=== PATIENT | female | born 1950 | race Caucasian/White ===

== ENCOUNTER 2016-05-12 10:00 | Emergency (ER) | payer OTHER ==
[~2016-05-12] VITALS: Ht 162.6 cm; Wt 63.5 kg
[~2016-05-12 10:00] MED LIST: ADULT LOW DOSE81 MG PO; ASPIRIN325 PO; BYSTOLIC 5 MG5 M1 PO; CRESTOR10 MG PO; CRESTOR5 MG OR; FISH OIL 1,0001 EAC5 PO; FISHOIL; FLAX OIL1000 MG PO; LISINOPRIL2.5 MG OR; MILK THISTLE500 MG PO; NAPROSYN500 MG PO; NIASPAN 500 MG500 M1; NORCO 5-325 TA1 EACH PO; NORFLEX100 MG PO; PLAVIX 75 MG TA75 MG OR; PRILOSEC 20 MG20 MG PO; PRILOSEC PO; TOPROL XL25 MG PO; ULTRAM 50MG TAB50 MG PO
[2016-05-12 10:01] VITALS: BP 158/85
[2016-05-12] MEDS ORDERED: NORCO 5-325 TA1 EACH PO (10:50)
== END 2016-05-12 11:00 | disposition home or self-care (01) ==
LOC: ER 10:00
DX: S20.211A Contusion of right front wall of thorax, initial encounter (principal); K21.9 Gastro-esophageal reflux disease without esophagitis; I10 Essential (primary) hypertension; F17.210 Nicotine dependence, cigarettes, uncomplicated; Z90.710 Acquired absence of both cervix and uterus; Z88.0 Allergy status to penicillin; X58.XXXA Exposure to other specified factors, initial encounter; Y93.89 Activity, other specified; Y92.89 Other specified places as the place of occurrence of the external cause; Y99.8 Other external cause status

== ENCOUNTER → 2019-06-23 | Outpatient (CLI) | payer OTHER ==
[~2019-06-23] MED LIST changes: +FLEXERIL PO; +HYDROCODONE-AP1 EAC6 PO
== END ==
LOC: MRI 12:04
DX: M17.11 Unilateral primary osteoarthritis, right knee (principal); M22.41 Chondromalacia patellae, right knee; M71.21 Synovial cyst of popliteal space [Baker], right knee; W19.XXXA Unspecified fall, initial encounter

== ENCOUNTER → 2019-10-22 | Outpatient (CLI) | payer OTHER | LOC: NUC 07:16 | PROVIDERS: ATTEND Internal Medicine | DX: I25.10 Atherosclerotic heart disease of native coronary artery without angina pectoris (principal); I10 Essential (primary) hypertension; E78.00 Pure hypercholesterolemia, unspecified; Z95.5 Presence of coronary angioplasty implant and graft ==

== ENCOUNTER 2020-05-27 22:49 | Inpatient (IN) | payer OTHER ==
[~2020-05-27] VITALS: Ht 165.1 cm; Wt 57.2 kg
[2020-05-27 22:50] VITALS: BP 81/46
[2020-05-27 23:25] LABS: ABSOLUTE NEUTROPHILS 8.2 thou/uL (1.4-8.2); BASOPHILS 0.2 % (0.0-2.0); EOSINOPHILS 2.4 % (0.0-3.0); HEMATOCRIT 48.4 % (37.0-47.0); HEMOGLOBIN 15.8 gm/dL (12.0-15.0); LYMPHOCYTES 36.5 % (24.0-44.0); MCH 29.6 pg (26.0-34.0); MCHC 32.6 g/dL (28.0-37.0); MCV 90.6 fL (80.0-100.0); MONOCYTES 5.1 % (1.0-8.0); PLATELET COUNT 246 thou/uL (150-400); POLYS 55.8 % (36.0-66.0); RBC 5.34 mil/uL (4.20-5.00); RDW 13.2 % (10.5-14.5); WBC 14.7 thou/uL (4.0-11.0)
[2020-05-27 23:31] LABS: ANION GAP 10 mmol/L (7-16); BUN 14 mg/dL (7-18); CALCIUM 8.5 mg/dL (8.5-10.1); CHLORIDE 106 mmol/L (98-107); CO2 26 mmol/L (21-32); GLUCOSE 163 mg/dL (74-106); POTASSIUM 3.4 mmol/L (3.5-5.1); SODIUM 142 mmol/L (136-145)
[2020-05-27 23:42] LABS: ALBUMIN 3.3 g/dL (3.4-5.0); LIPASE 116 U/L (73-393); SGOT 17 U/L (15-37); SGPT 17 U/L (14-59); TOTAL BILIRUBIN 0.3 mg/dL (0.2-1.0); TROPONIN-I <0.06 ng/mL (<0.06)
[2020-05-28] VITALS (26 sets, daily range): BP systolic 97–140; BP diastolic 32–89
[2020-05-28 00:03] LABS: LARGE PLATELETS OCCASIONAL
[2020-05-28 01:18] LABS: HEMATOCRIT 43.9 % (37.0-47.0); HEMOGLOBIN 14.4 gm/dL (12.0-15.0); MCH 29.3 pg (26.0-34.0); MCHC 32.7 g/dL (28.0-37.0); MCV 89.6 fL (80.0-100.0); RBC 4.9 mil/uL (4.20-5.00); RDW 12.7 % (10.5-14.5); WBC 14.8 thou/uL (4.0-11.0)
[2020-05-28 01:32] LABS: INR 1.1; PROTIME 12.4 Seconds (9.3-11.4)
[2020-05-28] MEDS ORDERED: ASA81BEC PO (04:04)
[2020-05-28 04:29] LABS: HEMATOCRIT 45.9 % (37.0-47.0); MCH 29.3 pg (26.0-34.0); MCHC 32.6 g/dL (28.0-37.0); RBC 5.1 mil/uL (4.20-5.00); WBC 10.1 thou/uL (4.0-11.0)
[2020-05-28 04:42] LABS: CREATININE 1.1 mg/dL (0.6-1.0); POTASSIUM 3.9 mmol/L (3.5-5.1)
[2020-05-28 04:52] LABS: TROPONIN-I 4.37 ng/mL (<0.06)
--- NOTE | 2020-05-28 07:39 | EKG ---
[address] [facility] [place] [address] ELECTROCARDIOGRAM REPORT Name: ELEONORA GUAJARDO Room #: 212-P ADM IN M.R.#: [id number] Admission: 05/28/20 Attend Phys: Manjinder Nicole MD Discharge: Date of : 50 Report #: [id number] [facility] ED Test Date: 2020-05-27 Test Time: 22:59:58 Pat Name: ELEONORA GUAJARDO Department: Room: 212 Gender: F Senior Underwriter: salvador : 1950 Requested By: Danny Hollis Order Number: [id number] MD: Raymond Peters Measurements Intervals [place] Rate: 82 P: 80 RI: 136 QRS: 35 QRSD: 87 T: 41 QT: 406 QTc: 475 Interpretive Statements Sinus rhythm Probable left atrial enlargement Probable anteroseptal infarct, recent Compared to ECG 07/16/2010 09:54:02 Myocardial infarct finding now present Electronically Signed On 05-28-2020 7:39:05 CLERICAL MANAGER by Raymond Peters [email or web address] <ELECTRONICALLY SIGNED> By: Raymond Peters MD, [facility] 05/28/20 0739 58 Raymond Peters MD, FACC /EPI
--- NOTE | 2020-05-28 07:42 | EKG ---
[address] [place] [address] ELECTROCARDIOGRAM REPORT Name: ELEONORA GUAJARDO Room #: 212-P ADM IN M.R.#: [id number] Admission: 05/28/20 Attend Phys: Manjinder Nicole MD Discharge: Date of : 50 Report #: [id number] [facility] ED Test Date: 2020-05-27 Test Time: 23:31:56 Pat Name: ELEONORA GUAJARDO Department: Room: [facility] Gender: F It Security Specialist: charley : 1950 Requested By: Danny Hollis Order Number: [id number] MD: Raymond Peters Measurements Intervals [place] Rate: 93 P: 57 [place]: 160 QRS: 53 QRSD: 84 T: -26 QT: 383 QTc: 477 Interpretive Statements Sinus rhythm Probable anteroseptal infarct, recent Compared to ECG 05/27/2020 22:59:58 No significant changes Electronically Signed On 05-28-2020 7:42:10 SNOWBLOWER MECHANIC by Raymond Peters [email or web address] <ELECTRONICALLY SIGNED> By: Raymond Peters MD, [facility] 05/28/20 0742 30 30 Raymond Peters MD, FACC /EPI
--- NOTE | 2020-05-28 07:42 | EKG ---
[address] [place] [address] ELECTROCARDIOGRAM REPORT Name: ELEONORA GUAJARDO Room #: 212-P ADM IN M.R.#: [id number] Admission: 05/28/20 Attend Phys: Manjinder Nicole MD Discharge: Date of : 50 Report #: [id number] [facility] ED Test Date: 2020-05-28 Test Time: 01:43:04 Pat Name: ELEONORA GUAJARDO Department: Room: 212 Gender: F Stapler Coil Unit: DUANE : 1950 Requested By: Marta Diaz Order Number: [id number] : Raymond Peters Measurements Intervals [place] Rate: 88 P: 78 [place]: 146 QRS: 52 QRSD: 88 T: 40 QT: 367 QTc: 444 Interpretive Statements Sinus rhythm Probable left atrial enlargement Anterior infarct, old Compared to ECG 05/27/2020 23:31:56 No significant changes Electronically Signed On 05-28-2020 7:42:26 CARDIAC TECHNICIAN by Raymond Peters [email or web address] <ELECTRONICALLY SIGNED> By: Raymond Peters MD, [facility] 05/28/20 0742 014 0143 Raymond Peters MD, FACC /EPI
--- NOTE | 2020-05-28 08:33 | NUR ---
PATIENT WAS A NEW ADMISSION TO THE UNIT THIS SHIFT. SHE ARRIVED VIA CART FROM THE ER AND WAS ABLE TO AMBULATE TO THE BED WITHOUT INCIDENT. PATIENT IS FULLY ALERT AND ORIENTED AND ABLE TO PARTICIPATE FULLY IN HER ADMISSION. NITRO AND HEPARIN GTT'S TO GOOD AFFECT WITH PATIENT HAVING NO COMPLAINTS OF PAIN THROUGHOUT SHIFT. BREATHING STABLE ON TWO LITERS NASAL CANNULA EVIDENCED BY ADMISSION ASSESSMENT AND SPOT OXYGENATION CHECKS. NURSE TO COMPLETE ADMISSION AND INITIATE PLAN OF CARE.
--- NOTE | 2020-05-28 18:49 | NUR ---
ALERT AND ORIENTED AND VITALS STABLE. WEANED OFF NITRO GTT AND DENIES CHEST PAIN. TOLERATING DIET W/O NAUSEA. SCHEDULED FOR HEART CATH TOMORROW AND CONSENT SIGNED AND IN THE CHART.
[2020-05-29] VITALS (9 sets, daily range): BP systolic 99–126; BP diastolic 47–75
--- NOTE | 2020-05-29 04:42 | NUR ---
ASSUMED PT CARE AT 1900. VSS. PT A&0X4. DENIES PAIN. PT IS STABLE, NPO SINCE MIDNIGHT. NO ISSUES OVER NOC. WILL CONTINUE TO MONITOR PER OC
--- NOTE | 2020-05-29 11:53 | CATHLAB ---
[facility] [place] [address] INVASIVE PROCEDURE REPORT Name: ELEONORA GUAJARDO Room #: 212-P ADM IN M.R.#: [id number] Admission: 05/28/20 Attend Phys: Manjinder Nicole MD Discharge: Date of : 50 Report #: [id number] THIS REPORT FOR: cc: Manjinder Nicole MD, Neal A. MD Park, Jin S. MD ~ APPROVED REPORT Study performed: 05/29/2020 08:25:01 Patient Details Patient Status: In-Patient Room #: 212 The patient is a 69 year-old female Event Personnel Migel Ariza Front Worker, Natanael Cates RTR ScrubHerminio Ja'net RTR Monitor, Tahir Marley RTR Supervisor [employer], Felix Lowe RN mill tender second operator Performed Left Heart Cath w/or w/o Coronaries [id number] [facility] Art Access - R femoral artery* Hemostasis with Manual pressure 92145 Initial Mod Sed Same Phys/QHP Gr5y [id number] Indication Non-STEMI , Dyspnea, Chest pain, The patient presented with chest pain and positive troponin levels. Risk Factors Hypercholesterolemia, Coronary Artery DiseaseHypertension Procedure Narrative The patient was brought urgently to the Cardiac Catheterization Laboratory and was prepped and draped in a sterile manner. The Right Groin^ was infiltrated with 1% Lidocaine subcutaneous anesthesia. A PINNACLE 4FR Sheath #[id number] sheath was inserted into the RFA^. Coronary angiography was performed using coronary diagnostic catheters. The right coronary system was accessed and visualized with a JR4 catheter. The left coronary system was accessed and visualized with a JL4 catheter. The left ventricle was accessed and visualized with a PIGTAIL catheter. Left ventricular/Aortic Valve gradient assessed via catheter pullback. Left ventriculogram was performed in 30 degree projection. Hemostasis was obtained with manual pressure following sheath removal without any complications. The patient [facility] [address] [place] [address] INVASIVE PROCEDURE REPORT Name: ELEONORA GUAJARDO Room #: 212-P [facility] IN ..#: [id number] Admission: 05/28/20 Attend Phys: Manjinder Nicole, Discharge: Date of : 50 Report #: [id number] tolerated the procedure well and there were no complications associated with the procedure. There was no hematoma. Intraoperative Conscious Sedation Sedation start time: 8:48 Case end Time: 9:17 Fentanyl 50 mcg Versed 1 mg Fluoro Time: 1.30 minutes Dose: DAP 1644.30 cGycm2 227 mGy Contrast Type and Amount: Visipaque 80 ml Coronary Angiography The patient's coronary anatomy is right dominant. Diagnostic Cath Left Main The left main artery is a large-caliber vessel, patent with no flow-limiting lesions. LAD There is a previously placed stent to the mid segment, patent with minimal restenosis. There is mild to moderate disease in the distal LAD segment, 30 to 40%. Recommend medical therapy. Diagonal 1 This is a small caliber vessel, with no flow-limiting lesions. Diagonal 2 This is a small caliber vessel, with no flow-limiting lesions. Circumflex There is mild diffuse disease in the midsegment, 20%. OM1 This is a moderate-sized caliber vessel, patent with no flow-limiting lesions. OM2 This is a moderate-sized caliber vessel, patent with no flow-limiting lesions. Right Coronary The RCA is a dominant vessel with mild disease in the midsegment, 30%. R PDA This is a moderate-sized caliber vessel, patent with no flow-limiting lesions. RPLV This is a moderate-sized caliber vessel, patent with no flow-limiting lesions. Left Ventriculography The left ventricle is normal in size with normal contractility. The left ventricular ejection fraction is estimated to be 50-55%. There is subtle hypokinesis of the anterior lateral segment. Hemodynamics The aortic pressure is 116/65 mmHg with a mean of 87 mmHg. [facility] [address] [place] [address] INVASIVE PROCEDURE REPORT Name: ELEONORA GUAJARDO Room #: 212-P ADM IN M.R.#: [id number] Admission: 05/28/20 Attend Phys: Manjinder Nicole, Discharge: Date of : 50 Report #: [id number] ventricular pressure is 126/15 mmHg with a mean of mmHg. The left ventricular end diastolic pressure is 25 mmHg. Pullback from the left ventricle to the aorta revealed no gradient across the aortic valve. Conclusion 1. There is a patent stent in the mid LAD segment with minimal restenosis. 2. There is mild to moderate disease in the distal LAD, mid left circumflex and mid RCA segments. 3. Borderline lownormal LV systolic function with subtle hypokinesis of the anterolateral segment. Possible Takotsubo cardiomyopathy. 4. Recommend guideline directed medical therapy and aggressive risk factor management. <ELECTRONICALLY SIGNED> By: Migel Ariza MD 05/29/20 1153 1153 1153 Migel Ariza MD /INF
--- NOTE | 2020-05-29 13:22 | 2DMMODE ---
[facility] [place] [address] 2 D/M-MODE ECHOCARDIOGRAM Name: ELEONORA GUAJARDO PATRICK Room #: 212-P ADM IN M.R.#: [id number] Admission: 05/28/20 Attend Phys: Manjinder Nicole MD Discharge: Date of : 50 Report #: [id number] THIS REPORT FOR: cc: Manjinder Nicole MD, Neal A. MD Santiago, Patrick MD [facility] ~ APPROVED REPORT Study performed: 05/29/2020 12:31:28 EXAM: Comprehensive 2D, Doppler, and color-flow Echocardiogram Patient Location: Bedside Room #: 212 Status: routine BSA: 1.63 HR: 62 bpm BP: 126/66 mmHg Rhythm: NSR Other Information Study Quality: Good Indications Acute coronary syndrome, short of breath. Status post PCI. Hx: CAD with stenting, tobacco abuse. 2D Dimensions RVDd: 35.31 mm IVSd: 12.00 (7-11mm) LVOT Diam: 20.00 (18-24mm) LVDd: 38.00 mm PWd: 9.00 (7-11mm) Ascending Ao: 31.00 (22-36mm) LVDs: 28.00 (25-40mm) Left Atrium: 32.00 (27-40mm) Aortic Root: 30.00 mm Volumes Left Atrial Volume (Systole) Single Plane 4CH: 29.37 mL Single Plane 2CH: 31.40 mL LA ESV Index: 21.00 mL/m2 Aortic Valve AoV Peak Lucas.: 1.18 m/s AO Peak Gr.: 5.52 mmHg LVOT Max P.16 mmHg [facility] [address] [address] 2 D/M-MODE ECHOCARDIOGRAM Name: ELEONORA GUAJARDO Room #: 212-P [facility] IN ..#: [id number] Admission: 05/28/20 Attend Phys: Manjinder Nicole, Discharge: Date of : 50 Report #: [id number] LVOT Max V: 0.73 m/s MATTHIAS Vmax: 2.00 cm2 Mitral Valve E/A Ratio: 1.5 MV Decel. Time: 178.26 ms MV E Max Lucas.: 0.79 m/s MV A Lucas.: 0.53 m/s MV PHT: 51.70 ms IVRT: 79.58 ms Pulmonary Valve PV Peak Lucas.: 0.67 m/s PV Peak Gr.: 1.81 mmHg Pulmonary Vein P Vein S: 0.42 m/s P Vein A: 0.31 m/s P Vein D: 0.36 m/s P Vein A Dur.: 131.5 msec P Vein S/D Ratio: 1.17 Tricuspid Valve TR Peak Lucas.: 2.16 m/s RAP Estimate: 5.00 mmHg TR Peak Gr.: 17.00 mmHg PA Pressure: 22.00 mmHg Left Ventricle The left ventricle is normal size. Mild basal septal hypertrophy is present. Left ventricular systolic function is normal. LVEF is 50-55%. The left ventricular diastolic function is normal. Right Ventricle The right ventricle is normal size. The right ventricular systolic function is normal. Atria The left atrium size is normal. The right atrium size is normal. Aortic Valve The aortic valve is normal in structure; mildly calcified. Mild aortic regurgitation. There is no aortic valvular stenosis. Mitral Valve The mitral valve is normal in structure. Mild mitral annular calcification. Trace mitral regurgitation. No evidence of mitral valve stenosis. [facility] [address] [place] [address] 2 D/M-MODE ECHOCARDIOGRAM Name: ELEONORA GUAJARDO [facility] Room #: 212-P [facility] IN M.R.#: [id number] Admission: 05/28/20 Attend Phys: Manjinder Nicole, Discharge: Date of : 50 Report #: [id number] Tricuspid Valve The tricuspid valve is normal in structure. Trace tricuspid regurgitation. Estimated PAP is 20-25mmHg. Pulmonic Valve Pulmonic valve is not well visualized. Great Vessels The aortic root is normal in size. The ascending aorta is normal in size. IVC is normal in size and collapses >50% with inspiration. Pericardium There is no pericardial effusion. <Conclusion> Normal left ventricular size the Mild basal septal hypertrophy Ejection fraction of 50-55% with mild mid anterior apical and distal inferoapical hypokinesis possibly mild Takotsubo finding Normal atrial size Normal right ventricular size/function Color-flow Doppler study was performed of the aortic/mitral/tricuspid/pulmonary valve Mild aortic valve insufficiency Mild mitral annular calcification Trace tricuspid valve insufficiency, PA pressure estimated 25 mmHg No pericardial effusion <ELECTRONICALLY SIGNED> By: Raymond Peters MD, FACC 05/29/20 132 20 20 Raymond Peters MD, FACC /INF
--- NOTE | 2020-05-29 19:44 | NUR ---
RECEIVED PT'S CARE AROUND 0730; PT. ON BED; ALERT; DURING AM ASSESSMENT NO C/O PAIN; SR ON THE MONITOR; NPO; SCHEDULED CARDIAC CATH; AM MEDICATIONS GIVEN; GONE FOR PROCEDURE BEFORE 0900; BACK AFTER 1030; PER REPORT NO INTERVENTION; D/C HEPARING GTT; NS FLUIDS RUN; R. GROIN INCISION C/D/I; NO HEMATOMA THROUGH THE DAY; EDUCATED ABOUT CALLING IF NOTICED SWELLING OR INCREASE PAIN; ST. UNDERSTANDING; EDUCATED ABOUT HOLDING PRESSURE IF COUGHING; ST. UNDERSTANDING; OFF FROM BED REST AT 1330; PT. ABLE TO AMBULATE; NO C/O PAIN; ASSESSMENT CHARGED; FOLLOWING POC; PASSED ON REPORT;
[2020-05-30] VITALS (7 sets, daily range): BP systolic 102–160; BP diastolic 47–77
--- NOTE | 2020-05-30 04:13 | NUR ---
PT IS ALERT AND ORIENTED X4. LUNGS ARE CLEAR ON ROOM AIR. UP AD SONYA. RIGHT GROIN SITE IS DRY AND INTACT NO HEMATOMA NOTED DENIES ANY CHEST PAIN AT THIS TIME. ABDOMEN IS SOFT AND ROUND. CALL LIGHT WITHIN REACH IF NEEEDS ASSTST. ABDOMEN IS ROUND AND SOFT BOWEL SOUNDS ACTIVE X4. NO CONERNS OR NOTED WILL CONTINUE TO,
[2020-05-30 04:43] LABS: CALCIUM 8.4 mg/dL (8.5-10.1); CREATININE 0.6 mg/dL (0.6-1.0); POTASSIUM 3.5 mmol/L (3.5-5.1)
[2020-05-30 05:02] LABS: HEMATOCRIT 40.6 % (37.0-47.0); HEMOGLOBIN 13.2 gm/dL (12.0-15.0); MCH 29.4 pg (26.0-34.0); MCHC 32.4 g/dL (28.0-37.0); MCV 90.6 fL (80.0-100.0); RBC 4.48 mil/uL (4.20-5.00); RDW 13.3 % (10.5-14.5); WBC 6.8 thou/uL (4.0-11.0)
[2020-05-30] MEDS ORDERED: XANAX 0.25 MG0.25 MG PO (08:18)
--- NOTE | 2020-05-30 10:32 | NUR ---
SR PER TELE. DENIES SOA, CP. DISCHARGING TO HOME. TELE BOX SECURED.
== END 2020-05-30 10:52 | disposition home or self-care (01) | DRG 281 ==
LOC: ER 22:49 → 2N 05-28 00:27 → EROBS 05-28 00:27 → 2N 05-28 02:50
PROVIDERS: Emergency Medicine; Internal Medicine Cardiovascular Disease; Nurse Practitioner Family; ADMIT Family Medicine; ATTEND Family Medicine
PROC: 4A0335C Measurement of Arterial Flow, Coronary, Percutaneous Approach (ICD-10-PCS; principal; 2020-05-29)
PROC: 4A023N7 Measurement of Cardiac Sampling and Pressure, Left Heart, Percutaneous Approach (ICD-10-PCS; principal; 2020-05-29)
PROC: B211YZZ Fluoroscopy of Multiple Coronary Arteries using Other Contrast (ICD-10-PCS; principal; 2020-05-29)
PROC: B215YZZ Fluoroscopy of Left Heart using Other Contrast (ICD-10-PCS; principal; 2020-05-29)
DX: I21.4 Non-ST elevation (NSTEMI) myocardial infarction (principal); I51.81 Takotsubo syndrome; T82.855A Stenosis of coronary artery stent, initial encounter; K21.9 Gastro-esophageal reflux disease without esophagitis; I25.10 Atherosclerotic heart disease of native coronary artery without angina pectoris; F17.210 Nicotine dependence, cigarettes, uncomplicated; E78.5 Hyperlipidemia, unspecified; I10 Essential (primary) hypertension; Y83.8 Other surgical procedures as the cause of abnormal reaction of the patient, or of later complication, without mention of misadventure at the time of the procedure; Z20.822 Contact with and (suspected) exposure to COVID-19; Z90.49 Acquired absence of other specified parts of digestive tract; Y92.89 Other specified places as the place of occurrence of the external cause; Z90.710 Acquired absence of both cervix and uterus; Z95.5 Presence of coronary angioplasty implant and graft; Z79.899 Other long term (current) drug therapy; Z88.0 Allergy status to penicillin
CPT/HCPCS: 10081

== ENCOUNTER → 2020-06-06 | Outpatient (CLI) | payer OTHER ==
[~2020-06-06] MED LIST changes: +ASA81BEC PO; +XANAX 0.25 MG0.25 MG PO
== END ==
LOC: SJCVC 14:54
PROVIDERS: ATTEND Internal Medicine
DX: I25.10 Atherosclerotic heart disease of native coronary artery without angina pectoris (principal); K21.9 Gastro-esophageal reflux disease without esophagitis; I10 Essential (primary) hypertension; E78.00 Pure hypercholesterolemia, unspecified; E78.5 Hyperlipidemia, unspecified; I25.2 Old myocardial infarction; F17.210 Nicotine dependence, cigarettes, uncomplicated; Z79.82 Long term (current) use of aspirin; Z79.899 Other long term (current) drug therapy; Z88.0 Allergy status to penicillin; Z95.5 Presence of coronary angioplasty implant and graft

== ENCOUNTER → 2020-07-18 | Outpatient (CLI) | payer OTHER | LOC: SJCVC 08:38 | PROVIDERS: ATTEND Internal Medicine | DX: E78.00 Pure hypercholesterolemia, unspecified (principal); I25.10 Atherosclerotic heart disease of native coronary artery without angina pectoris; I10 Essential (primary) hypertension; E78.5 Hyperlipidemia, unspecified; I25.2 Old myocardial infarction; K21.9 Gastro-esophageal reflux disease without esophagitis; F17.210 Nicotine dependence, cigarettes, uncomplicated; Z88.0 Allergy status to penicillin; Z79.82 Long term (current) use of aspirin; Z79.891 Long term (current) use of opiate analgesic; Z79.899 Other long term (current) drug therapy; Z95.1 Presence of aortocoronary bypass graft; Z95.820 Peripheral vascular angioplasty status with implants and grafts ==

== ENCOUNTER → 2021-01-18 | Outpatient (CLI) | payer OTHER | LOC: SJCVC 08:47 | PROVIDERS: ATTEND Internal Medicine | DX: I25.10 Atherosclerotic heart disease of native coronary artery without angina pectoris (principal); I10 Essential (primary) hypertension; K21.9 Gastro-esophageal reflux disease without esophagitis; I65.29 Occlusion and stenosis of unspecified carotid artery; Z95.1 Presence of aortocoronary bypass graft; Z87.891 Personal history of nicotine dependence; Z79.82 Long term (current) use of aspirin; Z79.899 Other long term (current) drug therapy; Z88.0 Allergy status to penicillin ==

== ENCOUNTER 2021-05-10 18:29 | Emergency (ER) | payer OTHER ==
[~2021-05-10] VITALS: Ht 162.6 cm; Wt 59.0 kg
[2021-05-10 19:02] LABS: ABSOLUTE NEUTROPHILS 3.7 thou/uL (1.4-8.2); BASOPHILS 0.7 % (0.0-2.0); EOSINOPHILS 0.5 % (0.0-3.0); HEMATOCRIT 42.5 % (37.0-47.0); HEMOGLOBIN 14.2 gm/dL (12.0-15.0); LYMPHOCYTES 13.3 % (24.0-44.0); MCH 29.5 pg (26.0-34.0); MCHC 33.4 g/dL (28.0-37.0); MCV 88.5 fL (80.0-100.0); MONOCYTES 16.3 % (1.0-8.0); POLYS 69.2 % (36.0-66.0); WBC 5.4 thou/uL (4.0-11.0)
[2021-05-10 19:06] LABS: PLATELET COUNT 87 thou/uL (150-400)
[2021-05-10 20:13] LABS: CALCIUM 8.3 mg/dL (8.5-10.1); CREATININE 0.8 mg/dL (0.6-1.0); POTASSIUM 3.6 mmol/L (3.5-5.1)
[2021-05-10 20:23] LABS: ALBUMIN 3.2 g/dL (3.4-5.0); TOTAL BILIRUBIN 0.6 mg/dL (0.2-1.0); TOTAL PROTEIN 5.8 g/dL (6.4-8.2)
[2021-05-10 22:16] VITALS: BP 139/79
--- NOTE | 2021-05-11 09:59 | EKG ---
[place] [address] [address] [employer] [address] ELECTROCARDIOGRAM REPORT Name: BENNETTSULY ANN Room #: DEP Jose Elias#: [id number] Admission: 05/10/21 Attend Phys: Discharge: 05/10/21 Date of : 50 Report #: [id number] [facility] ED Test Date: 2021-05-10 Test Time: 20:57:10 Pat Name: SULY GUAJARDO Department: Room: Gender: F Air Marshal: JUAN : 1950 Requested By: Suly Berumen Order Number: [id number] MD: Raymond Peters Measurements Intervals [place] Rate: 84 P: 75 [place]: 140 QRS: 45 QRSD: 89 T: 45 QT: 384 QTc: 454 Interpretive Statements Sinus rhythm Probable anteroseptal infarct, old Compared to ECG 05/28/2020 01:43:04 No significant changes Electronically Signed On 05-11-2021 9:59:17 [employer] by Raymond Peters [email or web address] <ELECTRONICALLY SIGNED> By: Raymond Peters MD, [facility] 05/11/21 0959 56 56 Raymond Peters MD, FACC /EPI
== END 2021-05-10 22:19 | disposition home or self-care (01) ==
LOC: ER 18:29
PROVIDERS: Physician Assistant
DX: F41.9 Anxiety disorder, unspecified (principal); I95.9 Hypotension, unspecified; R53.1 Weakness; D69.6 Thrombocytopenia, unspecified; K21.9 Gastro-esophageal reflux disease without esophagitis; I10 Essential (primary) hypertension; E78.5 Hyperlipidemia, unspecified; F17.210 Nicotine dependence, cigarettes, uncomplicated; Z79.899 Other long term (current) drug therapy; Z88.0 Allergy status to penicillin; Z98.51 Tubal ligation status; Z90.49 Acquired absence of other specified parts of digestive tract; Z90.710 Acquired absence of both cervix and uterus

== ENCOUNTER → 2021-05-11 | Outpatient (CLI) | payer OTHER | LOC: SJCVCIMAG 09:57 | PROVIDERS: ATTEND Internal Medicine | DX: I08.2 Rheumatic disorders of both aortic and tricuspid valves (principal); R55 Syncope and collapse; I25.10 Atherosclerotic heart disease of native coronary artery without angina pectoris; I10 Essential (primary) hypertension; E78.5 Hyperlipidemia, unspecified; K21.9 Gastro-esophageal reflux disease without esophagitis; I73.9 Peripheral vascular disease, unspecified; Z87.891 Personal history of nicotine dependence; Z79.82 Long term (current) use of aspirin; Z79.899 Other long term (current) drug therapy; Z88.0 Allergy status to penicillin ==